=== PATIENT | male | born 1995 | race Caucasian/White ===

== ENCOUNTER 2019-09-01 12:15 | Emergency (ER) | payer BC, OTHER ==
[2019-09-01 12:36] VITALS: BP 106/51
[2019-09-01] MEDS ORDERED: TETANUS/DIPHTHERIA/PERTUSSIS 0.5 ML SYRINGE IM ONE (12:42)
[2019-09-01] MEDS ORDERED: cephALEXin 250 MG CAPSULE PO STA (12:48)
--- NOTE | 2019-09-01 12:53 | ED Physician Documentation ---
History of Present Illness - Stated complaint Stated Complaint: RT THUMB LAC - Chief complaint Chief Complaint: Laceration - History obtained from History obtained from: Patient - History of Present Illness Timing: Yesterday Pain level max: 4 Pain level now: 3 - Additonal information Additional information: 24-year-old male presents to the emergency department stating that he fell injuring his right thumb yesterday. Sustained a laceration along the edge of the thumb. He cleansed and bandaged this at home. Has been applying bacitracin. States it feels more swollen today is concerned about potential infection. Unknown last tetanus shot. Patient is right-handed. Review of Systems Constitutional: denies: Fever, Chills Skin: denies: Rash Musculoskeletal: denies: Neck pain, Back pain Neurologic: denies: Headache PD PAST MEDICAL HISTORY - Past Medical History Past Medical History: Yes Cardiovascular: None Respiratory: None Endocrine/Autoimmune: None GI: None : Other HEENT: None Psych: None Musculoskeletal: None Derm: None, Eczema - Past Surgical History Past Surgical History: No - Present Medications Home Medications: Ambulatory Orders Medication Instructions Recorded Confirmed Cephalexin [Keflex] 500 mg PO Q6H #28 capsule 09/01/19 - Allergies Allergies/Adverse Reactions: Allergies Allergy/AdvReac Type Severity Reaction Status Date / Time No Known Drug Allergies Allergy Verified 09/01/19 12:33 - Social History Does the pt smoke?: No Smoking Status: Never smoker Does the pt drink ETOH?: No Does the pt have substance abuse?: No - Immunizations Immunizations are current?: No Immunizations: TDAP >10years/unknown - POLST Patient has POLST: No PD ED PE NORMAL - Vitals Vital signs reviewed: Yes - General General: Alert and oriented X 3, No acute distress - HEENT HEENT: Moist mucous membranes - Derm Derm: Warm and dry - Extremities Extremities: Other (Right thumb, lateral aspect - Multiple abrasions/superficial lacerations to the lateral aspect of the thumb. Neurovascularly intact. Appears clean. Mild swelling.) - Neuro Neuro: Alert and oriented X 3 - Psych Psych: Normal mood, Normal affect Results - Vitals Vitals: Vital Signs - 24 hr 09/01/19 12:33 Temperature 36.6 C Heart Rate 60 Respiratory 14 Rate Blood Pressure 106/51 L O2 Saturation 100 Oxygen O2 Source Room air PD MEDICAL DECISION MAKING - ED course Complexity details: considered differential, d/w patient ED course: Patient with a laceration/abrasion that is close to 24 hours old. There is some swelling. Concerned about potential infection given that this is a dirty wound. Will place on Keflex and have him follow-up closely with his doctor for further wound care. Tdap given. Warnings of infection and instructions on wound care given at bedside. Also counseled on how to minimize scarring. Patient counseled regarding signs and symptoms for which I believe and urgent re-evaluation would be necessary. Patient with good understanding of and agreement to plan and is comfortable going home at this time This document was made in part using voice recognition software. While efforts are made to proofread this document, sound alike and grammatical errors may occur. No sutures indicated at this time. Departure - Departure Disposition: 01 Home, Self Care Clinical Impression: Abrasion Condition: Good Instructions: ED Abrasion Follow-Up: Your,doctor in 3 days [Other] Prescriptions: Cephalexin [Keflex] 500 mg PO Q6H #28 capsule Comments: Take all antibiotics until gone. Return if you notice redness, swelling or drainage from the wound. You were given a tetanus shot today. Keep the wound clean. You can start to leave it open to the air starting tonight or tomorrow. Keep it covered when you are in dirty areas.
== END 2019-09-01 13:39 | disposition home or self-care (01) ==
LOC: ED 12:15
DX: S61.011A Laceration without foreign body of right thumb without damage to nail, initial encounter (principal); S60.311A Abrasion of right thumb, initial encounter; W19.XXXA Unspecified fall, initial encounter; Z23 Encounter for immunization
CPT/HCPCS: 90471; 90715; 99283; 99284; A9270

== ENCOUNTER 2022-06-09 15:26 | Outpatient (CLI) | payer MEDICAID, OTHER ==
--- NOTE | 2022-06-09 15:35 | XRAY Report ---
PROCEDURE: Foot 3 View RT INDICATIONS: NONDISPLACED FX 1ST METATARSAL RIGHT FOOT TECHNIQUE: 3 views of the foot were acquired. COMPARISON: None FINDINGS: Bones: Minimally displaced transverse fracture of the mid first metatarsal. Adjacent bony callus is p resent. Soft tissues: No tibiotalar joint effusion. IMPRESSION: Healing first metatarsal fracture. Reviewed by: Antoine Nails MD on 06/09/2022 3:33 PM PDT Approved by: Antoine Nails MD on 06/09/2022 3:33 PM PDT Station ID: [id number]
== END 2022-06-09 15:31 | disposition home or self-care (01) ==
LOC: DI.S 15:26
PROVIDERS: ATTEND Physician Assistant
DX: S92.314D Nondisplaced fracture of first metatarsal bone, right foot, subsequent encounter for fracture with routine healing (principal)

== ENCOUNTER 2022-11-25 08:00 | Outpatient (CLI) | payer MEDICAID ==
[2022-11-25 21:40] LABS: CHLAMYDIA TRACHOMATIS DNA NEGATIVE (NEGATIVE); NEISSERIA GONORRHOEAE DNA NEGATIVE (NEGATIVE); TRICHOMONAS VAGINALIS DNA NEGATIVE (NEGATIVE)
== END 2022-11-25 23:59 | disposition home or self-care (01) ==
LOC: LAB.S 08:00
PROVIDERS: ATTEND Physician Assistant
DX: Z11.3 Encounter for screening for infections with a predominantly sexual mode of transmission (principal)
CPT/HCPCS: 87491; 87591; 87661

== ENCOUNTER 2023-01-31 08:00 | Outpatient (CLI) | payer MEDICAID ==
--- NOTE | 2023-01-31 16:52 | XRAY Report ---
PROCEDURE: Foot 3 View LT INDICATIONS: LEFT FOOT PAIN TECHNIQUE: 3 views of the foot were acquired. COMPARISON: None. FINDINGS: Bones: No fractures or dislocations. No suspicious bony lesions. Soft tissues: No suspicious soft tissue calcifications or masses. IMPRESSION: No acute bony abnormality. If pain persists with conservative management, consider repeat radiographs in 10-14 days or cross-sectional imaging. Reviewed by: Josey Ferrara MD on 01/31/2023 4:51 PM PST Approved by: Josey Ferrara MD on 01/31/2023 4:51 PM PST Station ID: [id number]
== END 2023-01-31 23:59 | disposition home or self-care (01) ==
LOC: DI.S 08:00
PROVIDERS: ATTEND Registered Nurse
DX: M79.672 Pain in left foot (principal)

== ENCOUNTER 2023-02-08 08:00 | Outpatient (CLI) | payer MEDICAID ==
--- NOTE | 2023-02-08 22:17 | XRAY Report ---
PROCEDURE: Foot 3 View LT INDICATIONS: LEFT FOOT PAIN TECHNIQUE: 3 views of the foot were obtained. COMPARISON: None FINDINGS: Bones: No fractures or dislocations. No suspicious bony lesions. Soft tissues: Unremarkable. No radiopaque foreign body. IMPRESSION: Normal foot radiographs Reviewed by: Valentin Sarmiento MD on 02/08/2023 9:16 PM [place] Approved by: Valentin Sarmiento MD on 02/08/2023 9:16 PM [place] Station ID: [id number]
== END 2023-02-08 23:59 | disposition home or self-care (01) ==
LOC: DI.WOS 08:00
PROVIDERS: ATTEND Physician Assistant Surgical
DX: M79.672 Pain in left foot (principal)

== ENCOUNTER 2023-02-22 07:42 | Outpatient (CLI) | payer MEDICAID ==
--- NOTE | 2023-02-22 16:13 | MRI Report ---
PROCEDURE: FOOT WO - LT INDICATIONS: PAIN IN LEFT FOOT TECHNIQUE: Noncontrast sagittal T1 spin echo and T2 fast spin echo with fat saturation, long-axis T1 spin echo a nd T2 fast spin echo with fat saturation, short-axis proton density fast spin echo and T2 fast spin e cho with fat saturation through the forefoot. COMPARISON: None. FINDINGS: Image quality: Excellent. MRI of the left forefoot. No comparisons. FINDINGS: MRI of the left forefoot shows marrow edema involving the bases of the second, third, fourth, fifth m etatarsals with associated marrow edema present involving the second and third cuneiforms and cuboid. There is also a joint effusion involving the cuboid articulation with the fourth and fifth metatarsa l heads and the second and third cuneiforms with the respective metatarsal heads. Some of the Lisfranc ligaments are somewhat indistinct and I cannot exclude a Lisfranc injury and cli nical correlation is recommended. Do not see significant degenerative change. Musculature appears within normal limits. IMPRESSION: 1. Marrow edema in the bases of the second through fifth metatarsals and within the adjacent second a nd third cuneiforms and cuboid bone. 2. Joint effusions in the articulation of the cuboid with the fourth and fifth metatarsal heads and t he articulations of the second and third cuneiform with the respective metatarsal heads. 3. Is some indistinctness to the Lisfranc ligament complex and imaging findings are worrisome for Lis franc injury. . Reviewed by: James Curry MD on 02/22/2023 4:11 PM PST Approved by: James Curry MD on 02/22/2023 4:11 PM PST Station ID: [id number]
== END 2023-02-22 07:43 | disposition home or self-care (01) ==
LOC: DI 07:42
PROVIDERS: ATTEND Registered Nurse
DX: M25.475 Effusion, left foot (principal)